=== PATIENT | male | born 1995 | race Caucasian/White ===

== ENCOUNTER 2022-12-25 06:49 | Emergency (ER) | payer SELFPAY ==
[~2022-12-25] VITALS: Ht 170.2 cm; Wt 85.1 kg
[2022-12-25 07:07] VITALS: BP 130/91
[2022-12-25] MEDS ORDERED: HYDR26CR2 TP (09:16)
[2022-12-25] MEDS ORDERED: PHENYLEPH/PRAMOXIN/GLYCR/PET RECTAL CREAM 26GM PR NR (09:30)
== END 2022-12-25 09:52 | disposition home or self-care (01) ==
LOC: ER 06:49
DX: K64.9 Unspecified hemorrhoids (principal)
CPT/HCPCS: 99281; 99282